=== PATIENT | female | born 2005 ===

== ENCOUNTER 2025-03-01 06:30 | Outpatient (REF) | payer OTHER, SELFPAY ==
--- OUTSIDE RECORDS SUMMARY | 2025-02-12 04:00 | XMS_ITS ---
Author Organization [facility] Network Address [address] [facility] [address] [place] [address] Care Team Providers Care Athletics Director Name Role Phone Ivette Soto Primary Care Provider Unavail EDDI Ruiz Unavailable [phone] REASON FOR VISIT E/ PPO C20 Encounters Encounter Location Date Provider Diagnosis [facility] [address] [facility] [address] [place] [address] 02/12/2025 EDDI HARRIS Plan Of Treatment No Information Progress Notes * Brando MILLERDOB:2005 (19 yo F)Acc No.[id number]:02/12/2025 Progress Notes Patient: Brando Coombs Provider: Milla Harris MD :2005 A ge:19 Y S ex:Female Date:02/12/2025 Address:[address] [place], [place] [id number] Pcp:Ivette Soto Subjective: * Chief Complaints: * E / PPO C20 * Electronic signature of EDDI HARRIS M.D. on 03/01/2025 at 06:34 AM EDT Sign off status: Pending * Provider: Milla Harris MD Date: 0 02/12/2025 Generated for [place] ng/Farosalinag/eTransmitting on: 0 03/01/2025 06:34 AM EDT
--- NOTE | ~2025-03-01 | US_ITS ---
CLINICAL HISTORY: PELVIC PAIN, CHECK IUD US Pelvis Transabdominal and Transvaginal COMPARISON: None provided FINDINGS: Transabdominal scanning performed for overall anatomy. Transvaginal scanning performed for additional detail. Uterus measures 7.3 x 3.1 x 5.9 cm. Normal echotexture. No mass. Anteverted/anteflexed. Normal endometrium, approximately 3 mm thickness. No endometrial mass. Normally positioned IUD in the endometrial canal. Right ovary: 3.9 x 2.6 x 2.4 cm. No mass. Normal Doppler color flow. Left ovary: 4.1 x 2.5 x 2.3 cm. No mass. Normal Doppler color flow. No free fluid. IMPRESSION: No acute findings. Normally positioned IUD. This document has been electronically signed by: Marcos Alford MD on 03/02/2025 01:11:10
--- OUTSIDE RECORDS SUMMARY | 2025-03-01 06:34 | XMS_ITS | Patient Health Record ---
Author Organization [facility] Network Address [address] [place] [address] [address] [place] [address] Care Team Providers Care Egg Crater Name Role Phone Ivette Soto Primary Care Provider EDDI Chen Unavailable [phone] Reason For Referral No Information Plan Of Treatment No Information Insurance Providers Payer Name Payer Address Payer Phone Subscriber Number Group Number Insured Name Patient Relationship to Insured Coverage Start Date Coverage End Date [facility] [address] [address] [place] [id number] Brando Reyes Self - patient is the insured
== END 2025-03-01 06:31 | disposition home or self-care (01) ==
LOC: HO.UMASIMG 06:30
PROVIDERS: Visit Provider Family Medicine
DX: R10.2 Pelvic and perineal pain (principal)
CPT/HCPCS: 76830; 76856

== ENCOUNTER → 2025-03-01 15:30 | Outpatient (BNV) | payer OTHER, SELFPAY | PROVIDERS: Visit Provider Radiology Diagnostic Radiology | DX: R10.2 Pelvic and perineal pain (principal) | CPT/HCPCS: 76830; 76856 ==